=== PATIENT | male | born 1940 | race Caucasian/White ===

== ENCOUNTER 2017-07-23 05:22 | Day surgery (SDC) | payer OTHER ==
[2017-07-15 17:17] VITALS: BMI 33.3
--- NOTE | 2017-07-23 07:30 | HP ---
History & Physical Update - History History: No Change - Physical Physical: No Change - Assessment Assessment: No Change - Plan Plan: No Change
--- NOTE | 2017-07-23 07:32 | OP ---
Operative Note - Note: Operative Date: 07/23/17 Pre-Operative Diagnosis: L ureteral calculus Operation: ESWL L Findings: L ureteral calculus Post-Operative Diagnosis: Same as Pre-op Surgeon: Graham Izaguirre Anesthesiologist/SED SPECIAL EDUCATION TEACHER: Hiwot Gonzalez Anesthesia: Fractional Estimated Blood Loss (mls): 0 Drains & Tubes with Location: L JJ stent Operative Report Dictated: Yes
[2017-07-23] MEDS ORDERED: PROPOFOL 20 ML ONE ×2 (07:39→07:47)
[2017-07-23] MEDS ORDERED: LIDOCAINE HCL/PF 2% SDV 5ML VIAL ONE (07:39)
[2017-07-23] MEDS ORDERED: ceFAZolin SODIUM 1 GM VIAL ONE (07:39)
[2017-07-23] MEDS ORDERED: MIDAZOLAM HCL 2 MG/2 ML SINGLE DOSE VIAL ONE (07:40)
[2017-07-23] MEDS ORDERED: ceFAZolin SODIUM 1 GM VIAL IVPB ONE (07:45)
[2017-07-23] MEDS ORDERED: KETOROLAC TROMETHAMINE 30 MG/1 ML VIAL ONE (07:47)
--- NOTE | 2017-07-23 08:05 | OP ---
DATE OF OPERATION: 07/23/2017 PREOPERATIVE DIAGNOSIS: Left proximal ureteral calculus.. POSTOPERATIVE DIAGNOSIS: Left proximal ureteral calculus. PRODEDURE: Extracorporeal shock wave lithotripsy, left ureteral calculus. SURGEON: Graham Luke MD MANAGED CARE MANAGER: None. ANESTHESIA: IV sedation. ANESTHESIOLOGIST: Hiwot Gonzalez MD SPECIMENS: None. CULTURES: None. DRAINS: Left double-J stent. ESTIMATED BLOOD LOSS: None. COMPLICATIONS: None. PROCEDURE WAS FOLLOWS: Patient was brought into the operating room, was placed on the operating room table in supine position. After administration of intravenous antibiotics, intravenous sedation was administered, and the patient was positioned over the treatment head, and under fluoroscopic guidance, an approximately 5-mm left proximal ureteral calculus was identified under fluoroscopic guidance adjacent to the double-J stent, which was in good position. Now, the stone was targeted and delivered 2500 shocks of maximum kilovoltage with excellent fragmentation. He tolerated the procedure well. He was transferred to the recovery room in stable condition. GRAHAM LUKE M.D. ANDREW/[id number]
[2017-07-23] MEDS ORDERED: oxyCODONE HCL 5 MG TABLET PO PRN (08:17)
[2017-07-23] MEDS ORDERED: IBUPROFEN 800 MG/8 ML IJ IVPB PRN (08:17)
[2017-07-23] MEDS ORDERED: ONDANSETRON 4 MG/2 ML VIAL IVPUSH PRN (08:17)
[2017-07-23] MEDS ORDERED: LACTATED RINGERS SOLUTION 1,000 ML IV SCH (08:30)
[2017-07-23 09:51] VITALS: TEMP 97.9
[2017-07-23 09:52] VITALS: BP 134/64; PULSE 60
== END 2017-07-23 10:20 | disposition home or self-care (01) ==
LOC: JASU-SURG 05:22
PROVIDERS: ATTEND Urology
PROC: 0TF7XZZ Fragmentation in Left Ureter, External Approach (ICD-10-PCS; principal; 2017-07-23 07:30)
DX: N20.1 Calculus of ureter (principal)
CPT/HCPCS: 94760

== ENCOUNTER 2017-08-06 18:52 | Inpatient (IN) | payer OTHER ==
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
[2017-08-06] MEDS ORDERED: SODIUM CHLORIDE 0.9% 1000 ML INFUS.BAG IV STA (19:21)
[2017-08-06 20:13] LABS: BASOPHIL 0.4 % (0-2.0); EOSINOPHIL 0.5 % (0-4.5); MCH 28.8 pg (25.7-33.7); MCHC 32.7 g/dl (32.0-35.9); MEAN CELL VOLUME 88.3 fl (80-96); MEAN PLT VOLUME 8.5 fl (7.5-11.1); NEUTROPHILS 93.1 % (42.8-82.8); PLATELET COUNT 227 K/MM3 (134-434); RDW 16.9 % (11.9-15.9); WHITE BLOOD COUNT 8.1 K/mm3 (4.0-10.0)
[2017-08-06 20:23] LABS: VENOUS BLOOD GAS HCO3 25.2 meq/L (19-25); VENOUS PH 7.47 (7.32-7.42)
[2017-08-06 20:32] LABS: INR 1.07 (0.82-1.09); PROTHROMBIN TIME (PATIENT) 12.1 SEC (9.98-11.88)
[2017-08-06 20:35] LABS: ACTIVATED PTT 28.8 SECONDS (26.9-34.4)
[2017-08-06 20:41] LABS: ALBUMIN 3.4 g/dl (3.4-5.0); ANION GAP 9 (8-16); CO2 24 mmol/L (21-32); CREATININE 1.2 mg/dL (0.7-1.3); GLUCOSE,RANDOM 123 mg/dL (74-106)
[2017-08-06 20:46] LABS: ALK PHOS 146 U/L (45-117); BILIRUBIN,TOTAL 0.8 mg/dL (0.2-1.0); CPK 189 IU/L (39-308); SGPT/ALT 30 U/L (12-78); TOT PROT 7.1 g/dl (6.4-8.2); TROPONIN I < 0.02 ng/ml (0.00-0.05)
[2017-08-06 20:57] LABS: SGOT/AST 29 U/L (15-37)
[2017-08-06] MEDS ORDERED: IBUPROFEN 600 MG TABLET (FP) PO ONE ×2 (21:19→21:25)
[2017-08-06 21:29] LABS: URINE APPEARANCE CLOUDY; URINE BILIRUBIN NEGATIVE (NEGATIVE); URINE BLOOD 3+ (NEGATIVE); URINE COLOR DKYELLOW; URINE GLUCOSE (UA) NEGATIVE (NEGATIVE); URINE KETONE NEGATIVE (NEGATIVE); URINE NITRITE POSITIVE (NEGATIVE); URINE UROBILINOGEN NEGATIVE mg/dL (0.2-1.0)
[2017-08-06 21:30] LABS: URINE PROTEIN 2+ (NEGATIVE)
[2017-08-06 21:33] LABS: URINE BACTERIA RARE /hpf (NONE SEEN); URINE MUCUS RARE; URINE RBC 66 /hpf (0-3); URINE WBC 435 /hpf (3-5); YEAST FEW
--- NOTE | 2017-08-06 22:05 | PN ---
Teaching Attending Note Name of Resident: Mj Sutton ATTENDING PHYSICIAN STATEMENT I saw and evaluated the patient. I reviewed the resident's note and discussed the case with the resident. I agree with the resident's findings and plan as documented. SUBJECTIVE: 77 yo M with hx. of HIV, HTN, ESWL for Nephrolithiasis, osteomyelitis, L. Sided double J-stent placement (07/23), presents with weakness and left flank pain, states he was short of breath due to the severity of the pain, denies any chest pain, pressure or shortness of breath now. States he is not sure of his last CD4 and notes he is complient with his meds. Notes pain in his left flank. States he is always incontinent and is on a catheter. No dysuria, No N/V/D. PC; Dr. Ceballos OBJECTIVE: Physical: VS: Vital Signs Period Temp Pulse Resp BP Sys/Varela Pulse Ox Last 24 Hr 101.1 F 99 16 120/63 95 GEN: Obese Male, NAD, Resting in bed HEENT: NCAT, PERRL,throat without erythema or exudates CARD: RRR S1, S2 RESP: CTAB ABD: BSX4, TTP L. flank EXT: +2 Pitting edema CBCD WBC 8.1 K/mm3 (4.0-10.0) 08/06/17 19:42 RBC 4.13 M/mm3 (4.00-5.60) 08/06/17 19:42 Hgb 11.9 GM/dL (11.7-16.9) 08/06/17 19:42 Hct 36.4 % (35.4-49) 08/06/17 19:42 MCV 88.3 fl (80-96) 08/06/17 19:42 MCHC 32.7 g/dl (32.0-35.9) 08/06/17 19:42 RDW 16.9 % (11.9-15.9) H 08/06/17 19:42 Plt Count 227 K/MM3 (134-434) D 08/06/17 19:42 MPV 8.5 fl (7.5-11.1) D 08/06/17 19:42 CMP Sodium 142 mmol/L (136-145) 08/06/17 19:42 Potassium 4.1 mmol/L (3.5-5.1) 08/06/17 19:42 Chloride 109 mmol/L (98-107) H 08/06/17 19:42 Carbon Dioxide 24 mmol/L (21-32) D 08/06/17 19:42 Anion Gap 9 (8-16) 08/06/17 19:42 BUN 30 mg/dL (7-18) H D 08/06/17 19:42 Creatinine 1.2 mg/dL (0.7-1.3) D 08/06/17 19:42 Creat Clearance w eGFR 59.02 (>60) 08/06/17 19:42 Random Glucose 123 mg/dL (74-106) H 08/06/17 19:42 Calcium 8.0 mg/dL (8.5-10.1) L 08/06/17 19:42 Total Bilirubin 0.8 mg/dL (0.2-1.0) D 08/06/17 19:42 AST 29 U/L (15-37) 08/06/17 19:42 ALT 30 U/L (12-78) D 08/06/17 19:42 Alkaline Phosphatase 146 U/L (45-117) H 08/06/17 19:42 Total Protein 7.1 g/dl (6.4-8.2) 08/06/17 19:42 Albumin 3.4 g/dl (3.4-5.0) 08/06/17 19:42 CARDIAC ENZYMES Creatine Kinase 189 IU/L (39-308) 08/06/17 19:42 Troponin I < 0.02 ng/ml (0.00-0.05) 08/06/17 19:42 Urine Test Results Urine Color Dkyellow 08/06/17 21:12 Urine Appearance Cloudy 08/06/17 21:12 Urine pH 5.0 (5.0-8.0) 08/06/17 21:12 Ur Specific [place] 1.018 (1.001-1.035) 08/06/17 21:12 Urine Protein 2+ (NEGATIVE) H 08/06/17 21:12 Urine Glucose (UA) Negative (NEGATIVE) 08/06/17 21:12 Urine Ketones Negative (NEGATIVE) 08/06/17 21:12 Urine Blood 3+ (NEGATIVE) H 08/06/17 21:12 Urine Nitrite Positive (NEGATIVE) 08/06/17 21:12 Urine Bilirubin Negative (NEGATIVE) 08/06/17 21:12 Urine Bacteria Rare /hpf (NONE SEEN) 08/06/17 21:12 Urine Mucus Rare 08/06/17 21:12 Home Medications Medication Instructions Recorded Emtricitabine/Tenofovir [Truvada -] 1 tab PO DAILY 08/18/13 Amlodipine Besylate [Norvasc -] 10 mg PO DAILY 09/08/14 Metformin HCl 500 mg PO DAILY 07/01/16 Amoxicillin 07/15/17 Gabapentin 400 mg PO BID 07/15/17 Oxycodone HCl/Acetaminophen 1 - 2 tab PO Q4H 07/23/17 [Percocet 5-325 mg Tablet] ASSESSMENT AND PLAN: 77 yo M with hx. of HIV, HTN, ESWL for Nephrolithiasis, L. Sided double J-stent placement (07/23), presents with weakness and left flank pain,being admitted for sepsis due to Pyelonephritis 1.) Sepsis - Pyelonephritis - Ceftriaxone - Oates Cx - Repeat LA - IVF - Urology on consult - CT Abd. Pending 2.) HIV - C/W Truvada - ID consult 3.) JANICE - Ulytes - IVF - Avoid Nephrotoxins 4.) HTN - Currently Controlled - C/W home meds 5.) LE Edema - Duplex LE 6.) Osteo Hip - On Ampicillin as outpt. - Check ESR/CRP - Continue 7.) DM - FS - RAISS .) Dvt Ppx - Mod risk - SCDS Due to Hematouria Place in Med-Sx
--- NOTE | 2017-08-06 22:23 | PDOC ---
Attending Attestation - Resident Resident Name: Kelvin Fischer - ED Attending Attestation I have performed the following: I have examined & evaluated the patient, The case was reviewed & discussed with the resident, I agree w/resident's findings & plan, Exceptions are as noted - HPI HPI: 08/06/17 22:21 77 yo male p/w fever,L flank pain .Recent;y had nephrolithiasis with lithotripsy and stent placement 08/06/17 22:24 - Physicial Exam PE: 08/06/17 22:24 77 yo male p/w L flank pain and fever HEAD wnl neck supple lungs cta b/l cvs tachycardia lung cta b/l abd no rebound no guarding Left flank pain ext no edema neuro axox3 - Medical Decision Making 08/06/17 22:28 pt admitted for IV antibiotics/pyelonephritis/HIV
[2017-08-06 22:38] LABS: URINE LEUK ESTERASE 2+ (NEGATIVE)
[2017-08-06] MEDS ORDERED: CEFTRIAXONE 1 GM/50 ML BAG ONE (22:48)
[2017-08-06] MEDS ORDERED: GABAPENTIN 400 MG CAPSULE (FP) PO ONE (23:11)
[2017-08-06] MEDS ORDERED: CEFTRIAXONE 1 GM in DEXTROSE 5%-WATER - 50 ML IVPB SCH (23:15)
[2017-08-06] MEDS ORDERED: CEFTRIAXONE 1 G/50 ML PREMIX 50 ML IVPB SCH (23:30)
[2017-08-07 00:03] VITALS: BMI 34.2
--- NOTE | 2017-08-07 00:03 | HP ---
CHIEF COMPLAINT: Left sided flank pain and SOB HISTORY OF PRESENT ILLNESS: Patient is a 77 yo M with a PMHx of HIV, HTN, ESWL for Nephrolithiasis, L. Sided double J-stent placement (07/23), and urinary incontinence, presented to the ED because of constant, Left sided flank pain and chills that started today at 4pm. Movement aggravates the pain. He later developed a fever with sweats. He called his urologist (Dr. Izaguirre) and decided to go to the hospital. He says the symptoms are similar to when he had his kidney stones. He currently denies chest pain, cough, dizziness, lightheadedness , dysuria, hematuria nausea,and vomiting. Patient does not recall his last CD4 count. ER course was notable for: (1) Temp 101.9, 100HR (2) 1gm Ceftriaxone Recent Travel: n/a PAST MEDICAL HISTORY: HIV, HTN, ESWL for Nephrolithiasis, L. Sided double J- stent placement (07/23), and urinary incontinence PAST SURGICAL HISTORY: hip replacement x3 Social History: Smoking: former smoker quit 1982 Alcohol: n/a Drugs: denies Family History: Allergies Sulfa (Sulfonamide Antibiotics) Allergy (Mild, Verified 08/06/17 18:59) Rash HOME MEDICATIONS: Home Medications Medication Instructions Recorded Emtricitabine/Tenofovir [Truvada -] 1 tab PO DAILY 08/18/13 Amlodipine Besylate [Norvasc -] 10 mg PO DAILY 09/08/14 Metformin HCl 500 mg PO DAILY 07/01/16 Amoxicillin 07/15/17 Gabapentin 400 mg PO BID 07/15/17 Oxycodone HCl/Acetaminophen 1 - 2 tab PO Q4H 07/23/17 [Percocet 5-325 mg Tablet] REVIEW OF SYSTEMS CONSTITUTIONAL: fever, chills, diaphoresis Absent: generalized weakness, malaise, loss of appetite, weight change HEENT: Absent: rhinorrhea, nasal congestion, throat pain, throat swelling, difficulty swallowing, mouth swelling,visual changes CARDIOVASCULAR: peripheral edema Absent: chest pain, syncope, palpitations, irregular heart rate, lightheadedness RESPIRATORY: sob Absent: cough, dyspnea with exertion, orthopnea, wheezing, stridor, hemoptysis GASTROINTESTINAL: constipation Absent: abdominal pain, abdominal distension, nausea, vomiting, diarrhea, melena , hematochezia GENITOURINARY: incontinence Absent: dysuria, frequency, urgency, hesitancy, hematuria, flank pain, genital pain MUSCULOSKELETAL: back pain Absent: myalgia, arthralgia, joint swelling, neck pain SKIN: Absent: rash, itching, pallor HEMATOLOGIC/IMMUNOLOGIC: Absent: easy bleeding, easy bruising, lymphadenopathy, frequent infections ENDOCRINE: Absent: unexplained weight gain, unexplained weight loss, heat intolerance, cold intolerance NEUROLOGIC: Absent: headache, focal weakness or paresthesias, dizziness, unsteady gait, seizure, mental status changes, bladder or bowel incontinence PSYCHIATRIC: Absent: anxiety, depression, suicidal or homicidal ideation, hallucinations. PHYSICAL EXAMINATION Vital Signs - 24 hr 08/06/17 19:00 Temperature 101.1 F H Pulse Rate 99 H Respiratory 16 Rate Blood Pressure 120/63 O2 Sat by Pulse 95 Oximetry (%) GENERAL: Awake, alert, and fully oriented, in no acute distress. HEAD: Normal with no signs of trauma. EYES: sclera anicteric, conjunctiva clear. EARS, NOSE, THROAT: oropharynx clear without exudates. Moist mucous membranes. NECK: supple without lymphadenopathy, LUNGS: Breath sounds equal, clear to auscultation bilaterally. No wheezes, and no crackles. HEART: tachy, regular rhythm, normal S1 and S2 without murmur, rub or gallop. ABDOMEN: Soft, nontender, not distended, normoactive bowel sounds, no guarding, no rebound, no masses. left flank tenderness to palpation, +Left CVA tenderness UPPER EXTREMITIES: 2+ pulses, warm, well-perfused. No cyanosis. No clubbing. No peripheral edema. LOWER EXTREMITIES: 2+ pulses, 2+ pitting edema NEUROLOGICAL: Cranial nerves II-XII intact. Normal speech. PSYCHIATRIC: Cooperative. Good eye contact. Appropriate mood and affect. Laboratory Results - last 24 hr 08/06/17 08/06/17 08/06/17 19:41 19:42 19:42 WBC 8.1 RBC 4.13 Hgb 11.9 Hct 36.4 MCV 88.3 MCH 28.8 MCHC 32.7 RDW 16.9 H Plt Count 227 D MPV 8.5 D Neutrophils % 93.1 H Lymphocytes % 2.6 L D Monocytes % 3.4 L Eosinophils % 0.5 Basophils % 0.4 D PT with INR 12.10 H INR 1.07 PTT (Actin FS) 28.8 VBG pH POC VBG pCO2 POC VBG pO2 Mixed VBG HCO3 Sodium Potassium Chloride Carbon Dioxide Anion Gap BUN Creatinine Creat Clearance w eGFR Random Glucose Lactic Acid 1.8 Calcium Total Bilirubin AST ALT Alkaline Phosphatase Creatine Kinase Creatine Kinase Index CK-MB (CK-2) Troponin I Total Protein Albumin Urine Color Urine Appearance Urine pH Ur Specific [place] Urine Protein Urine Glucose (UA) Urine Ketones Urine Blood Urine Nitrite Urine Bilirubin Urine Urobilinogen Ur Leukocyte Esterase Urine WBC (Auto) Urine RBC (Auto) Urine Bacteria Urine Mucus Urine Yeast Blood Type Antibody Screen 08/06/17 08/06/17 08/06/17 19:42 19:42 19:42 WBC RBC Hgb Hct MCV MCH MCHC RDW Plt Count MPV Neutrophils % Lymphocytes % Monocytes % Eosinophils % Basophils % PT with INR INR PTT (Actin FS) VBG pH 7.47 H POC VBG pCO2 44.6 POC VBG pO2 43.1 Mixed VBG HCO3 25.2 H Sodium 142 Potassium 4.1 Chloride 109 H Carbon Dioxide 24 D Anion Gap 9 BUN 30 H D Creatinine 1.2 D Creat Clearance w eGFR 59.02 Random Glucose 123 H Lactic Acid Calcium 8.0 L Total Bilirubin 0.8 D AST 29 ALT 30 D Alkaline Phosphatase 146 H Creatine Kinase 189 Creatine Kinase Index 1.4 CK-MB (CK-2) 2.715 Troponin I < 0.02 Total Protein 7.1 Albumin 3.4 Urine Color Urine Appearance Urine pH Ur Specific [place] Urine Protein Urine Glucose (UA) Urine Ketones Urine Blood Urine Nitrite Urine Bilirubin Urine Urobilinogen Ur Leukocyte Esterase Urine WBC (Auto) Urine RBC (Auto) Urine Bacteria Urine Mucus Urine Yeast Blood Type A POSITIVE Antibody Screen Negative 08/06/17 21:12 WBC RBC Hgb Hct MCV MCH MCHC RDW Plt Count MPV Neutrophils % Lymphocytes % Monocytes % Eosinophils % Basophils % PT with INR INR PTT (Actin FS) VBG pH POC VBG pCO2 POC VBG pO2 Mixed VBG HCO3 Sodium Potassium Chloride Carbon Dioxide Anion Gap BUN Creatinine Creat Clearance w eGFR Random Glucose Lactic Acid Calcium Total Bilirubin AST ALT Alkaline Phosphatase Creatine Kinase Creatine Kinase Index CK-MB (CK-2) Troponin I Total Protein Albumin Urine Color Dkyellow Urine Appearance Cloudy Urine pH 5.0 Ur Specific [place] 1.018 Urine Protein 2+ H Urine Glucose (UA) Negative Urine Ketones Negative Urine Blood 3+ H Urine Nitrite Positive Urine Bilirubin Negative Urine Urobilinogen Negative Ur Leukocyte Esterase 2+ H Urine WBC (Auto) 435 Urine RBC (Auto) 66 Urine Bacteria Rare Urine Mucus Rare Urine Yeast Few Blood Type Antibody Screen CXR: Mild bibasilar atelectasis with no evidence of infiltrates. ASSESSMENT/PLAN: 77 yo M with a PMHx of HIV, HTN, ESWL for Nephrolithiasis, L. Sided double J- stent placement (07/23), and urinary incontinence, presents with weakness and left flank pain,being admitted for sepsis due to Pyelonephritis. #Sepsis secondary to Pyelonephritis -UA: Nitrite + , 2+ LE, 3 + blood, 66 RBC, 435 WBC -Pending Ucx, Bcx -LA: 1.8, FU repeat -IV fluids NS@ 75 cc/hour -Urology consulted: Dr. Izaguirre -FU CT abdomen -IV Abx: Ceftriaxone 1gm (Day 1) #JANICE -creatinine 1.2 -IV fluids -urine lytes -avoid Nsaids -avoid nephrotoxins -Will monitor #HIV -cont. home med: Pepito -ID consulted #Pain Control -One time dose of percocet 5mg. -Patient says he is on 7.5mg of Percocet a day at home. 3.75mg in morning, night. -Med rec #B/L LE Edema -FU duplex -possibly due to calcium channel zander use. #Hx of Infection of Hip Prosthesis -Patient states he takes 500mg BID of Amoxicillin as outpatient. -Med Rec -Check ESR/CRP: could be elevated from HIV status #DM -BGM -ISS #FEN -NS 75 cc/hour -WNL -Regular Diet #DVT PPx -SCD's -Previous history of hematuria 1 month ago s/p stent placement. Dispo: Med-surge Visit type - Emergency Visit Emergency Visit: Yes ED Registration Date: 08/06/17 Care time: The patient presented to the Emergency Department on the above date and was hospitalized for further evaluation of their emergent condition. - New Patient This patient is new to me today: Yes Date on this admission: 08/07/17 - Critical Care Critical Care patient: No
[2017-08-07] MEDS: SODIUM CHLORIDE 1,000 ML IV SCH ×2 (00:28→17:57)
[2017-08-07] MEDS: RALTEGRAVIR POTASSIUM 400 MG TAB PO SCH ×3 (00:29→21:01)
[2017-08-07] MEDS: EMTRICITABINE 200MG/TENOFOVIR 300MG PO SCH ×2 (00:30→09:51)
[2017-08-07] MEDS: INSULIN SLIDING SCALE (NOVOLOG) 1 VIAL SQ SCH ×5 (00:32→21:02)
[2017-08-07 08:20] LABS: BASOPHIL 0.2 % (0-2.0); EOSINOPHIL 3.6 % (0-4.5); MCH 28.5 pg (25.7-33.7); MCHC 32.1 g/dl (32.0-35.9); MEAN CELL VOLUME 88.6 fl (80-96); MEAN PLT VOLUME 8.3 fl (7.5-11.1); NEUTROPHILS 79.4 % (42.8-82.8); PLATELET COUNT 177 K/MM3 (134-434); RDW 17.1 % (11.9-15.9); WHITE BLOOD COUNT 6.4 K/mm3 (4.0-10.0)
[2017-08-07 08:38] LABS: INR 1.15 (0.82-1.09)
[2017-08-07 08:41] LABS: ANION GAP 8 (8-16); CALCIUM 7.5 mg/dL (8.5-10.1); CO2 24 mmol/L (21-32); GLUCOSE,RANDOM 102 mg/dL (74-106); MAGNESIUM 2.1 mg/dL (1.8-2.4)
[2017-08-07 08:45] LABS: ALK PHOS 124 U/L (45-117); PHOSPHOROUS 2.7 mg/dL (2.5-4.9); SGOT/AST 20 U/L (15-37); SGPT/ALT 24 U/L (12-78); TOT PROT 6.3 g/dl (6.4-8.2)
--- NOTE | 2017-08-07 09:32 | PN ---
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 fever-most likely source- +pyuria with stent, mild hydronephrosis, s/p eswl continue rocephin fevers resolved urology consult pending doubt pneumonia hiv- stable, continue truvada/isentress history of left hip infection-continue chronic suppression with amox sulfa allergy Problem List - Problems (1) Fever Code(s): R50.9 - FEVER, UNSPECIFIED (2) UTI (urinary tract infection) Code(s): N39.0 - URINARY TRACT INFECTION, SITE NOT SPECIFIED (3) HIV (human immunodeficiency virus infection) Code(s): B20 - HUMAN IMMUNODEFICIENCY VIRUS [HIV] DISEASE (4) Allergy to sulfa drugs Code(s): Z88.2 - ALLERGY STATUS TO SULFONAMIDES STATUS
[2017-08-07] MEDS ORDERED: PT OWN MED DRAWER 7, Y5N ONE ×2 (09:49→20:58)
[2017-08-07] MEDS: oxyCODONE HCL 5 MG TABLET PO PRN ×4 (09:50→23:36)
[2017-08-07] MEDS: ACETAMINOPHEN 325 MG TABLET (FP) PO PRN ×4 (09:50→23:37)
[2017-08-07] MEDS: CEFTRIAXONE 1 G/50 ML PREMIX 50 ML IVPB SCH (09:51)
--- NOTE | 2017-08-07 10:22 | EKG ---
Test Reason : Blood Pressure : / mmHG Vent. Rate : 096 BPM Atrial Rate : 096 BPM P-R Int : 142 ms QRS Dur : 084 ms QT Int : 338 ms P-R-T Axes : 044 046 049 degrees QTc Int : 427 ms NORMAL SINUS RHYTHM POSSIBLE LEFT ATRIAL ENLARGEMENT LOW VOLTAGE QRS BORDERLINE ECG WHEN COMPARED WITH ECG OF 15-JUL-2017 17:20, NO SIGNIFICANT CHANGE WAS FOUND Confirmed by DREAD PACHECO MD ([id number]) on 08/07/2017 10:22:03 AM Referred By: Confirmed By:DREAD PACHECO MD
[2017-08-07] MEDS: AMOXICILLIN 500 MG CAPSULE (FP) PO SCH ×3 (11:01→21:01)
--- NOTE | 2017-08-07 12:22 | PN ---
Teaching Attending Note Name of Resident: Luis Daniel Duarte ATTENDING PHYSICIAN STATEMENT Time of evaluation: 10:10 AM I saw and evaluated the patient. I reviewed the resident's note and discussed the case with the resident. I agree with the resident's findings and plan as documented. SUBJECTIVE: patient seen and examined. Reports left flank symptoms since the stent insertion , no change currently. NO further fevers or chills noted. Has urinary incontinence but no dysuria. No shortness of breath noted. Reports chronic constipation. OBJECTIVE: Vital Signs Period Temp Pulse Resp BP Sys/Varela Pulse Ox Last 24 Hr 97.7 F-101.1 F 69-99 16-20 118-144/62-86 94-95 Intake & Output 08/04/17 08/05/17 08/06/17 08/07/17 23:59 23:59 23:59 23:59 Intake Total 525 Balance 525 Weight 218 lb 8 oz 218 lb 9 oz General: sitting in bed in no acute distress CVS:S1S2 regular Chest: CTAB, no rales or wheezing abdomen: soft, ND, positive Left CVA tenderness, no voluntary or involuntary guarding or rigidity extremities: no edema Home Medication List Medication Instructions Recorded Confirmed Type Emtricitabine/Tenofovir [Truvada -] 1 tab PO DAILY 08/18/13 08/06/17 History Amlodipine Besylate [Norvasc -] 10 mg PO DAILY 09/08/14 08/06/17 History Metformin HCl 500 mg PO DAILY 07/01/16 08/06/17 History Amoxicillin 500 mg PO BID 07/15/17 08/06/17 History Gabapentin 400 mg PO BID 07/15/17 08/06/17 History Oxycodone HCl/Acetaminophen 1 - 2 tab PO Q4H 07/23/17 08/06/17 History [Percocet 5-325 mg Tablet] Raltegravir [Isentress -] 400 mg PO BID 08/06/17 08/06/17 History Active Medications Generic Name Dose Route Start Last Admin Trade Name Freq PRN Reason Stop Dose Admin Acetaminophen 325 mg 08/07/17 09:46 08/07/17 09:50 Tylenol - PO 08/10/17 09:45 325 mg Q4H PRN Administration PAIN Amoxicillin 500 mg 08/07/17 09:30 08/07/17 11:01 Amoxicillin - PO 500 mg BID BRY Administration Emtricitabine/Tenofovir 1 tab 12/05/17 23:15 08/07/17 09:51 Truvada PO 1 tab DAILY BRY Administration Sodium Chloride 1,000 mls @ 75 mls/hr 08/06/17 23:15 08/07/17 00:28 Normal Saline - IV 75 mls/hr ASDIR BRY Administration CEFTRIAXONE 1 G/50 ML PREMIX 50 mls @ 100 mls/hr 08/07/17 10:00 08/07/17 09: 51 Ceftriaxone 1 Gm-D5w Bag IVPB 100 mls/hr DAILY BRY Administration Insulin Aspart 1 vial 08/06/17 23:15 08/07/17 11:07 Novolog Vial Sliding Scale - SQ Not Given ACHS BRY Protocol Oxycodone HCl 5 mg 08/07/17 09:46 08/07/17 09:50 Roxicodone - PO 5 mg Q4H PRN Administration PAIN Raltegravir 400 mg 08/06/17 23:30 08/07/17 09:51 Isentress - PO 400 mg BID BRY Administration ASSESSMENT AND PLAN: 77 yom with HIV on HAART, (Last CD4 ?195 in 06/2017), HTN, nephrolithiasis, recent ESWL with left Ureteral JJ stent placement 07/23 admitted with complicated UTI/left sided pyelonephritis. -Complicated UTI with LEft pyelonephritis -Recent ESWL with left ureteral JJ stent placement 07/23 -HTN -HIV on HAART (last CD4 ?195 in 06/2017) -Constipation Plan: Ceftriaxone day 2, follow up blood/urine cultures. ID input appreciated. Urology consult with Dr. Izaguirre. Continue home metorolol, HAART. Pain control with home oxycodone prn, bowel regimen DVTPPX add lovenox Dispo d/c in 24-48 hours spending improvement in symptoms, culture results and urology input.' Plan discussed with patient in detail, all questions answered.
--- NOTE | 2017-08-07 13:33 | PN ---
Physical Exam: SUBJECTIVE: Patient seen and examined at bedside. Patient states that he does not currently have a fever, burning on urination. He states he has some mild flank pain but states that has been going on for a long time. OBJECTIVE: Vital Signs Period Temp Pulse Resp BP Sys/Varela Pulse Ox Last 24 Hr 97.7 F-101.1 F 69-99 16-20 118-144/62-86 94-96 GENERAL: The patient is awake, alert, and fully oriented, in no acute distress. HEAD: Normal with no signs of trauma. EYES: PERRL, extraocular movements intact, sclera anicteric, conjunctiva clear. No ptosis. ENT: Ears normal, nares patent, oropharynx clear without exudates, moist mucous membranes. NECK: Trachea midline, full range of motion, supple. LUNGS: Breath sounds equal, clear to auscultation bilaterally, no wheezes, no crackles, no accessory muscle use. HEART: Regular rate and rhythm, S1, S2 without murmur, rub or gallop. ABDOMEN: Obese, Soft, nontender, nondistended, normoactive bowel sounds, no guarding, no rebound, no hepatosplenomegaly, no masses. : external catheter present draining 400cc yellow clear urine Laboratory Results - last 24 hr 08/06/17 08/06/17 08/06/17 19:41 19:42 19:42 WBC 8.1 RBC 4.13 Hgb 11.9 Hct 36.4 MCV 88.3 MCH 28.8 MCHC 32.7 RDW 16.9 H Plt Count 227 D MPV 8.5 D Neutrophils % 93.1 H Lymphocytes % 2.6 L D Monocytes % 3.4 L Eosinophils % 0.5 Basophils % 0.4 D ESR PT with INR 12.10 H INR 1.07 PTT (Actin FS) 28.8 VBG pH POC VBG pCO2 POC VBG pO2 Mixed VBG HCO3 Sodium Potassium Chloride Carbon Dioxide Anion Gap BUN Creatinine Creat Clearance w eGFR POC Glucometer Random Glucose Lactic Acid 1.8 Calcium Phosphorus Magnesium Total Bilirubin AST ALT Alkaline Phosphatase Creatine Kinase Creatine Kinase Index CK-MB (CK-2) Troponin I C-Reactive Protein Total Protein Albumin Urine Color Urine Appearance Urine pH Ur Specific [place] Urine Protein Urine Glucose (UA) Urine Ketones Urine Blood Urine Nitrite Urine Bilirubin Urine Urobilinogen Ur Leukocyte Esterase Urine WBC (Auto) Urine RBC (Auto) Urine Bacteria Urine Mucus Urine Yeast Ur Random Sodium Ur Random Potassium Ur Random Chloride Blood Type Antibody Screen 08/06/17 08/06/17 08/06/17 19:42 19:42 19:42 WBC RBC Hgb Hct MCV MCH MCHC RDW Plt Count MPV Neutrophils % Lymphocytes % Monocytes % Eosinophils % Basophils % ESR PT with INR INR PTT (Actin FS) VBG pH 7.47 H POC VBG pCO2 44.6 POC VBG pO2 43.1 Mixed VBG HCO3 25.2 H Sodium 142 Potassium 4.1 Chloride 109 H Carbon Dioxide 24 D Anion Gap 9 BUN 30 H D Creatinine 1.2 D Creat Clearance w eGFR 59.02 POC Glucometer Random Glucose 123 H Lactic Acid Calcium 8.0 L Phosphorus Magnesium Total Bilirubin 0.8 D AST 29 ALT 30 D Alkaline Phosphatase 146 H Creatine Kinase 189 Creatine Kinase Index 1.4 CK-MB (CK-2) 2.715 Troponin I < 0.02 C-Reactive Protein Total Protein 7.1 Albumin 3.4 Urine Color Urine Appearance Urine pH Ur Specific [place] Urine Protein Urine Glucose (UA) Urine Ketones Urine Blood Urine Nitrite Urine Bilirubin Urine Urobilinogen Ur Leukocyte Esterase Urine WBC (Auto) Urine RBC (Auto) Urine Bacteria Urine Mucus Urine Yeast Ur Random Sodium Ur Random Potassium Ur Random Chloride Blood Type A POSITIVE Antibody Screen Negative 08/06/17 08/07/17 08/07/17 21:12 00:32 06:00 WBC RBC Hgb Hct MCV MCH MCHC RDW Plt Count MPV Neutrophils % Lymphocytes % Monocytes % Eosinophils % Basophils % ESR PT with INR INR PTT (Actin FS) VBG pH POC VBG pCO2 POC VBG pO2 Mixed VBG HCO3 Sodium Potassium Chloride Carbon Dioxide Anion Gap BUN Creatinine Creat Clearance w eGFR POC Glucometer 109 Random Glucose Lactic Acid Calcium Phosphorus Magnesium Total Bilirubin AST ALT Alkaline Phosphatase Creatine Kinase Creatine Kinase Index CK-MB (CK-2) Troponin I C-Reactive Protein Total Protein Albumin Urine Color Dkyellow Urine Appearance Cloudy Urine pH 5.0 Ur Specific [place] 1.018 Urine Protein 2+ H Urine Glucose (UA) Negative Urine Ketones Negative Urine Blood 3+ H Urine Nitrite Positive Urine Bilirubin Negative Urine Urobilinogen Negative Ur Leukocyte Esterase 2+ H Urine WBC (Auto) 435 Urine RBC (Auto) 66 Urine Bacteria Rare Urine Mucus Rare Urine Yeast Few Ur Random Sodium 106 Ur Random Potassium 26.4 Ur Random Chloride 88 Blood Type Antibody Screen 08/07/17 08/07/17 08/07/17 07:45 07:45 07:45 WBC 6.4 RBC 3.94 L Hgb 11.2 L Hct 34.9 L MCV 88.6 MCH 28.5 MCHC 32.1 RDW 17.1 H Plt Count 177 D MPV 8.3 Neutrophils % 79.4 Lymphocytes % 8.8 D Monocytes % 8.0 D Eosinophils % 3.6 D Basophils % 0.2 ESR PT with INR 13.00 H INR 1.15 H PTT (Actin FS) VBG pH POC VBG pCO2 POC VBG pO2 Mixed VBG HCO3 Sodium 142 Potassium 3.8 Chloride 110 H Carbon Dioxide 24 Anion Gap 8 BUN 27 H Creatinine 1.0 Creat Clearance w eGFR > 60 POC Glucometer Random Glucose 102 Lactic Acid Calcium 7.5 L Phosphorus 2.7 Magnesium 2.1 Total Bilirubin 1.0 D AST 20 D ALT 24 Alkaline Phosphatase 124 H Creatine Kinase Creatine Kinase Index CK-MB (CK-2) Troponin I C-Reactive Protein Total Protein 6.3 L Albumin 3.0 L Urine Color Urine Appearance Urine pH Ur Specific [place] Urine Protein Urine Glucose (UA) Urine Ketones Urine Blood Urine Nitrite Urine Bilirubin Urine Urobilinogen Ur Leukocyte Esterase Urine WBC (Auto) Urine RBC (Auto) Urine Bacteria Urine Mucus Urine Yeast Ur Random Sodium Ur Random Potassium Ur Random Chloride Blood Type Antibody Screen 08/07/17 08/07/17 07:45 07:45 WBC RBC Hgb Hct MCV MCH MCHC RDW Plt Count MPV Neutrophils % Lymphocytes % Monocytes % Eosinophils % Basophils % ESR 45 H PT with INR INR PTT (Actin FS) VBG pH POC VBG pCO2 POC VBG pO2 Mixed VBG HCO3 Sodium Potassium Chloride Carbon Dioxide Anion Gap BUN Creatinine Creat Clearance w eGFR POC Glucometer Random Glucose Lactic Acid Calcium Phosphorus Magnesium Total Bilirubin AST ALT Alkaline Phosphatase Creatine Kinase Creatine Kinase Index CK-MB (CK-2) Troponin I C-Reactive Protein 4.2 H Total Protein Albumin Urine Color Urine Appearance Urine pH Ur Specific [place] Urine Protein Urine Glucose (UA) Urine Ketones Urine Blood Urine Nitrite Urine Bilirubin Urine Urobilinogen Ur Leukocyte Esterase Urine WBC (Auto) Urine RBC (Auto) Urine Bacteria Urine Mucus Urine Yeast Ur Random Sodium Ur Random Potassium Ur Random Chloride Blood Type Antibody Screen Active Medications Generic Name Dose Route Start Last Admin Trade Name Freq PRN Reason Stop Dose Admin Acetaminophen 325 mg 08/07/17 09:46 08/07/17 09:50 Tylenol - PO 08/10/17 09:45 325 mg Q4H PRN Administration PAIN Amoxicillin 500 mg 08/07/17 09:30 08/07/17 11:01 Amoxicillin - PO 500 mg BID BRY Administration Emtricitabine/Tenofovir 1 tab 08/06/17 23:15 08/07/17 09:51 Truvada PO 1 tab DAILY BRY Administration Enoxaparin Sodium 40 mg 08/08/17 10:00 Lovenox - SQ DAILY BRY Sodium Chloride 1,000 mls @ 75 mls/hr 08/06/17 23:15 08/07/17 00:28 Normal Saline - IV 75 mls/hr ASDIR BRY Administration CEFTRIAXONE 1 G/50 ML PREMIX 50 mls @ 100 mls/hr 08/07/17 10:00 08/07/17 09: 51 Ceftriaxone 1 Gm-D5w Bag IVPB 100 mls/hr DAILY BRY Administration Insulin Aspart 1 vial 08/06/17 23:15 08/07/17 11:07 Novolog Vial Sliding Scale - SQ Not Given ACHS [facility] Protocol Oxycodone HCl 5 mg 08/07/17 09:46 08/07/17 09:50 Roxicodone - PO 5 mg Q4H PRN Administration PAIN Raltegravir 400 mg 08/06/17 23:30 08/07/17 09:51 Isentress - PO 400 mg BID BRY Administration ASSESSMENT/PLAN: 77 yo M with a PMHx of HIV, HTN, ESWL for Nephrolithiasis, L. Sided double J- stent placement (07/23), and urinary incontinence, presents with weakness and left flank pain, being admitted for sepsis due to Pyelonephritis. #Sepsis secondary to Pyelonephritis: improving -WBC normal, afebrile, less symptomatic -continue ceftriaxone day 2 -follow up with urine and blood cultures -lactic acid normalized -continue IV fluids NS@ 75 cc/hour -ID consulted -Dr Izaguirre (urology) consulted -CT abdomen shows perinephric fat stranding #Acute kidney injury: resolved -IV fluids -avoid nephrotoxic agents #HIV infection: -Continue truvada -ID consult appreciated #Pain Control: -continue percorcet form home #B/L LE Edema: -Duplex negative for DVT #Hx of Infection of Hip Prosthesis: -continue home amoxicillin -ESR/CRP #Diabetes Mellitus -BGM -ISS #FEN -NS 75 cc/hour -Replete electrolytes as necessary -Diabetic diet #DVT Prophylaxis -SCD's Disposition: -Continue to monitor on med-surg Visit type - Emergency Visit Emergency Visit: No - New Patient This patient is new to me today: Yes Date on this admission: 08/07/17 - Critical Care Critical Care patient: No
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
[2017-08-07] MEDS: DOCUSATE SODIUM 100 MG CAPSULE (FP) PO SCH (14:54)
--- NOTE | 2017-08-07 15:16 | CON.GU ---
Consult Consult Specialty:: Referred by:: Mimi Reason for Consultation:: urosepsis - History of Present Illness Chief Complaint: fever chills History of Present Illness: 77 yo m w hx HIV, HTN, DM, L ureteral calculus s/p L JJ stent insertion then ESWL L who pres to ER c/o fever chills and L flank pain. cons req. - History Source History Provided By: Patient, Medical Record Limitations to Obtaining History: No Limitations - Past Medical History Renal/: Yes: BPH, Renal Calculi, UTI Infectious Disease: Yes: HIV - Past Surgical History Past Surgical History: Yes: TURP - Alcohol/Substance Use Hx Alcohol Use: No - Smoking History Smoking history: Former smoker Have you smoked in the past 12 months: No If you are a former smoker, when did you quit?: 1982 Home Medications - Allergies Allergies/Adverse Reactions: Allergies Allergy/AdvReac Type Severity Reaction Status Date / Time Sulfa (Sulfonamide Allergy Mild Rash Verified 08/06/17 18:59 Antibiotics) - Home Medications Home Medications: Ambulatory Orders Emtricitabine/Tenofovir [Truvada -] 1 tab PO DAILY 08/18/13 Amlodipine Besylate [Norvasc -] 10 mg PO DAILY 09/08/14 Metformin HCl 500 mg PO DAILY 07/01/16 Amoxicillin 500 mg PO BID 07/15/17 Gabapentin 400 mg PO BID 07/15/17 Oxycodone HCl/Acetaminophen [Percocet 5-325 mg Tablet] 1 - 2 tab PO Q4H Raltegravir [Isentress -] 400 mg PO BID 08/06/17 Physical Exam- Vital Signs: Vital Signs Temperature 97.9 F 08/07/17 14:19 Pulse Rate 74 08/07/17 14:19 Respiratory Rate 18 08/07/17 14:19 Blood Pressure 127/67 08/07/17 14:19 O2 Sat by Pulse Oximetry (%) 96 08/07/17 09:00 Renal/: Yes: WNL Kidneys: Yes: WNL Pelvis: Yes: WNL Testicles: Yes: WNL Scrotum: Yes: WNL Penis: Yes: WNL (condom cath) Labs: CBC, BMP 08/07/17 07:45 08/07/17 07:45 Imaging - Results Cat Scan: Report Reviewed Assessment/Plan Imp: Urosepsis/UTI, resolved pyrexia, indwelling L JJ stent Rec: cont IV abxs, await ur c+s then change to PO. He will need cystoscopy and L JJ stent removal after UTI resolved.
[2017-08-07] MEDS ORDERED: HEPARIN NA (PORCINE) 5,000 UNITS/ML 1ML VIAL SQ SCH (23:00)
[2017-08-08] MEDS: oxyCODONE HCL 5 MG TABLET PO PRN ×5 (03:31→21:19)
[2017-08-08] MEDS: ACETAMINOPHEN 325 MG TABLET (FP) PO PRN ×4 (03:32→21:20)
[2017-08-08] MEDS: SODIUM CHLORIDE 1,000 ML IV SCH (06:12)
[2017-08-08] MEDS: INSULIN SLIDING SCALE (NOVOLOG) 1 VIAL SQ SCH ×4 (06:15→21:50)
--- NOTE | 2017-08-08 08:00 | PN ---
Teaching Attending Note Name of Resident: Luis Daniel Duarte ATTENDING PHYSICIAN STATEMENT I saw and evaluated the patient. I reviewed the resident's note and discussed the case with the resident. I agree with the resident's findings and plan as documented. SUBJECTIVE: Patient seen and examined. Left flank symptoms improved. No new complaints. OBJECTIVE: Vital Signs Period Temp Pulse Resp BP Sys/Varela Pulse Ox Last 24 Hr 97.9 F-98.9 F 73-82 18-20 127-147/61-73 95-96 Intake & Output 08/05/17 08/06/17 08/07/17 08/08/17 23:59 23:59 23:59 23:59 Intake Total 1575 100 Output Total 650 Balance 925 100 Weight 218 lb 8 oz 218 lb 9 oz 219 lb 6 oz General: lying in bed in no acute distress Abdomen: soft, NT, ND, positive bowel sounds, mild Left CVA tenderness Home Medication List Medication Instructions Recorded Confirmed Type Emtricitabine/Tenofovir [Truvada -] 1 tab PO DAILY 08/18/13 08/06/17 History Amlodipine Besylate [Norvasc -] 10 mg PO DAILY 09/08/14 08/06/17 History Metformin HCl 500 mg PO DAILY 07/01/16 08/06/17 History Amoxicillin 500 mg PO BID 07/15/17 08/06/17 History Gabapentin 400 mg PO BID 07/15/17 08/06/17 History Oxycodone HCl/Acetaminophen 1 - 2 tab PO Q4H 07/23/17 08/06/17 History [Percocet 5-325 mg Tablet] Raltegravir [Isentress -] 400 mg PO BID 08/06/17 08/06/17 History Active Medications Generic Name Dose Route Start Last Admin Trade Name Freq PRN Reason Stop Dose Admin Acetaminophen 325 mg 08/07/17 09:46 08/08/17 07:55 Tylenol - PO 08/10/17 09:45 325 mg Q4H PRN Administration PAIN Amoxicillin 500 mg 08/07/17 09:30 08/07/17 21:01 Amoxicillin - PO 500 mg BID BRY Administration Docusate Sodium 100 mg 08/07/17 14:15 08/07/17 14:54 Colace - PO Not Given DAILY BRY Emtricitabine/Tenofovir 1 tab 08/06/17 23:15 08/07/17 09:51 Truvada PO 1 tab DAILY BRY Administration Enoxaparin Sodium 40 mg 08/08/17 10:00 Lovenox - SQ DAILY BRY Sodium Chloride 1,000 mls @ 75 mls/hr 08/06/17 23:15 08/08/17 06:12 Normal Saline - IV 75 mls/hr ASDIR BRY Administration CEFTRIAXONE 1 G/50 ML PREMIX 50 mls @ 100 mls/hr 08/07/17 10:00 08/07/17 09: 51 Ceftriaxone 1 Gm-D5w Bag IVPB 100 mls/hr DAILY BRY Administration Insulin Aspart 1 vial 08/06/17 23:15 08/08/17 06:15 Novolog Vial Sliding Scale - SQ Not Given ACHS [facility] Protocol Oxycodone HCl 5 mg 08/07/17 09:46 08/08/17 07:56 Roxicodone - PO 5 mg Q4H PRN Administration PAIN Raltegravir 400 mg 08/06/17 23:30 08/07/17 21:01 Isentress - PO 400 mg BID BRY Administration Laboratory Results - last 24 hr 08/08/17 08/08/17 08:10 08:10 WBC 6.0 RBC 3.98 L Hgb 11.3 L Hct 34.8 L MCV 87.5 MCH 28.5 MCHC 32.5 RDW 17.1 H Plt Count 183 MPV 8.1 Neutrophils % 67.5 Lymphocytes % 18.3 D Monocytes % 10.3 H Eosinophils % 3.7 Basophils % 0.2 Sodium 143 Potassium 3.6 Chloride 112 H Carbon Dioxide 25 Anion Gap 6 L BUN 20 H D Creatinine 1.0 Random Glucose 109 H Calcium 7.6 L Microbiology 08/06/17 21:12 Urine - Urine Clean Catch Urine Culture - Preliminary Lactose Fermenting Neg Bacilli 08/06/17 19:41 Blood - Peripheral Venous Blood Culture - Preliminary NO GROWTH OBTAINED AFTER 24 HOURS, INCUBATION TO CONTINUE FOR 4 DAYS. 08/06/17 19:42 Blood - Peripheral Venous Blood Culture - Preliminary NO GROWTH OBTAINED AFTER 24 HOURS, INCUBATION TO CONTINUE FOR 4 DAYS. ASSESSMENT AND PLAN: 77 yom with HIV on HAART, (Last CD4 ?195 in 06/2017), HTN, nephrolithiasis, recent ESWL with left Ureteral JJ stent placement 07/23 admitted with complicated UTI/left sided pyelonephritis. -Complicated UTI with Left pyelonephritis -Recent ESWL with left ureteral JJ stent placement 07/23 -HTN -HIV on HAART (last CD4 ?195 in 06/2017) -Constipation Plan: Ceftriaxone day 3,blood cultures neg so far. Urine cultures noted. ID input appreciated. Urology input noted. PLan for cystoscopy/L JJ stent removal once infection has resolved. Continue home HAART. Pain control with home oxycodone prn, bowel regimen DVTPPX lovenox Dispo d/c in 24 hours spending improvement in symptoms, culture results and ID/ urology input. Plan discussed with patient in detail, all questions answered.
--- NOTE | 2017-08-08 08:22 | PN ---
Physical Exam: SUBJECTIVE: Patient seen and examined at bedside. Patient states that he is uncomfortable and that he has been urinating every hour and has urinary incontinence. Patient states it doesn't burn when he urinates, but that he does go very frequently and that he isn't able to sleep. Denies pain, chest pain, SOB , nausea, vomiting, diarrhea. OBJECTIVE: Vital Signs Period Temp Pulse Resp BP Sys/Varela Pulse Ox Last 24 Hr 97.9 F-98.9 F 73-82 18-20 127-147/61-73 95-96 GENERAL: The patient is awake, alert, and fully oriented, in no acute distress. HEAD: Normal with no signs of trauma. EYES: PERRL, extraocular movements intact, sclera anicteric, conjunctiva clear. No ptosis. ENT: Ears normal, nares patent, oropharynx clear without exudates, moist mucous membranes. NECK: Trachea midline, full range of motion, supple. LUNGS: Breath sounds equal, clear to auscultation bilaterally, no wheezes, no crackles, no accessory muscle use. HEART: Regular rate and rhythm, S1, S2 without murmur, rub or gallop. ABDOMEN: Obese, Soft, nontender, nondistended, normoactive bowel sounds, no guarding, no rebound, no hepatosplenomegaly, no masses. : [place] catheter not visualized. Laboratory Results - last 24 hr 08/07/17 08/07/17 08/07/17 06:00 07:45 07:45 WBC 6.4 RBC 3.94 L Hgb 11.2 L Hct 34.9 L MCV 88.6 MCH 28.5 MCHC 32.1 RDW 17.1 H Plt Count 177 D MPV 8.3 Neutrophils % 79.4 Lymphocytes % 8.8 D Monocytes % 8.0 D Eosinophils % 3.6 D Basophils % 0.2 ESR PT with INR 13.00 H INR 1.15 H Sodium Potassium Chloride Carbon Dioxide Anion Gap BUN Creatinine Creat Clearance w eGFR Random Glucose Calcium Phosphorus Magnesium Total Bilirubin AST ALT Alkaline Phosphatase C-Reactive Protein Total Protein Albumin Ur Random Sodium 106 Ur Random Potassium 26.4 Ur Random Chloride 88 08/07/17 08/07/17 08/07/17 07:45 07:45 07:45 WBC RBC Hgb Hct MCV MCH MCHC RDW Plt Count MPV Neutrophils % Lymphocytes % Monocytes % Eosinophils % Basophils % ESR 45 H PT with INR INR Sodium 142 Potassium 3.8 Chloride 110 H Carbon Dioxide 24 Anion Gap 8 BUN 27 H Creatinine 1.0 Creat Clearance w eGFR > 60 Random Glucose 102 Calcium 7.5 L Phosphorus 2.7 Magnesium 2.1 Total Bilirubin 1.0 D AST 20 D ALT 24 Alkaline Phosphatase 124 H C-Reactive Protein 4.2 H Total Protein 6.3 L Albumin 3.0 L Ur Random Sodium Ur Random Potassium Ur Random Chloride Active Medications Generic Name Dose Route Start Last Admin Trade Name Freq PRN Reason Stop Dose Admin Acetaminophen 325 mg 08/07/17 09:46 08/08/17 07:55 Tylenol - PO 08/10/17 09:45 325 mg Q4H PRN Administration PAIN Amoxicillin 500 mg 08/07/17 09:30 08/07/17 21:01 Amoxicillin - PO 500 mg BID BRY Administration Docusate Sodium 100 mg 08/07/17 14:15 08/07/17 14:54 Colace - PO Not Given DAILY BRY Emtricitabine/Tenofovir 1 tab 08/06/17 23:15 08/07/17 09:51 Truvada PO 1 tab DAILY BRY Administration Enoxaparin Sodium 40 mg 08/08/17 10:00 Lovenox - SQ DAILY BRY Sodium Chloride 1,000 mls @ 75 mls/hr 08/06/17 23:15 08/08/17 06:12 Normal Saline - IV 75 mls/hr ASDIR BRY Administration CEFTRIAXONE 1 G/50 ML PREMIX 50 mls @ 100 mls/hr 08/07/17 10:00 08/07/17 09: 51 Ceftriaxone 1 Gm-D5w Bag IVPB 100 mls/hr DAILY BRY Administration Insulin Aspart 1 vial 08/06/17 23:15 08/08/17 06:15 Novolog Vial Sliding Scale - SQ Not Given ACHS [facility] Protocol Oxycodone HCl 5 mg 08/07/17 09:46 08/08/17 07:56 Roxicodone - PO 5 mg Q4H PRN Administration PAIN Raltegravir 400 mg 08/06/17 23:30 08/07/17 21:01 Isentress - PO 400 mg BID BRY Administration ASSESSMENT/PLAN: 77 yo M with a PMHx of HIV, HTN, ESWL for Nephrolithiasis, L. Sided double J- stent placement (07/23), and urinary incontinence, presents with weakness and left flank pain, being admitted for sepsis due to Pyelonephritis. #Sepsis secondary to Pyelonephritis: improving -WBC normal, afebrile, less symptomatic -continue ceftriaxone day 3 -blood cultures negative -urine cultures grew gram (-) lactose fermenting bacilli, after sensitivity change to PO medication -lactic acid normalized -hold fluids, patient is eating -ID consult appreciated -Dr Izaguirre (urology) consult appreciated - will remove stent and do cystoscopy after infection resolved -CT abdomen shows perinephric fat stranding #Acute kidney injury: resolved -IV fluids -avoid nephrotoxic agents #HIV infection: -Continue truvada -ID consult appreciated #Pain Control: -continue percorcet form home -start on home gabapentin #B/L LE Edema: -Duplex negative for DVT #Hx of Infection of Hip Prosthesis: -continue home amoxicillin -ESR/CRP #Diabetes Mellitus -BGM -ISS #FEN -stop fluids today -Replete electrolytes as necessary -Diabetic diet #DVT Prophylaxis -SCD's Disposition: -Continue to monitor on med-surg Visit type - Emergency Visit Emergency Visit: No - New Patient This patient is new to me today: No - Critical Care Critical Care patient: No
[2017-08-08 08:39] LABS: BASOPHIL 0.2 % (0-2.0); EOSINOPHIL 3.7 % (0-4.5); MCH 28.5 pg (25.7-33.7); MCHC 32.5 g/dl (32.0-35.9); MEAN CELL VOLUME 87.5 fl (80-96); MEAN PLT VOLUME 8.1 fl (7.5-11.1); NEUTROPHILS 67.5 % (42.8-82.8); PLATELET COUNT 183 K/MM3 (134-434); RDW 17.1 % (11.9-15.9)
[2017-08-08] MEDS ORDERED: PT OWN MED DRAWER 7, Y5N ONE ×2 (09:14→21:18)
[2017-08-08 09:16] LABS: ANION GAP 6 (8-16); CALCIUM 7.6 mg/dL (8.5-10.1); CO2 25 mmol/L (21-32); GLUCOSE,RANDOM 109 mg/dL (74-106)
[2017-08-08] MEDS: AMOXICILLIN 500 MG CAPSULE (FP) PO SCH ×2 (09:16→21:20)
[2017-08-08] MEDS: RALTEGRAVIR POTASSIUM 400 MG TAB PO SCH ×2 (09:17→21:20)
[2017-08-08] MEDS: CEFTRIAXONE 1 G/50 ML PREMIX 50 ML IVPB SCH (09:17)
[2017-08-08] MEDS: DOCUSATE SODIUM 100 MG CAPSULE (FP) PO SCH (09:17)
[2017-08-08] MEDS: EMTRICITABINE 200MG/TENOFOVIR 300MG PO SCH (09:19)
[2017-08-08] MEDS: ENOXAPARIN NA (PORCINE) 40 MG/0.4 ML DISP.SYRIN SQ SCH (09:19)
[2017-08-08] MEDS: amLODIPine BESYLATE 5 MG TABLET (FP) PO SCH (10:51)
[2017-08-08] MEDS: GABAPENTIN 400 MG CAPSULE (FP) PO SCH ×2 (14:16→21:19)
--- NOTE | 2017-08-08 16:11 | PN ---
Progress Note (short form) - Note Progress Note: still with flank pain Vital Signs Period Temp Pulse Resp BP Sys/Varela Pulse Ox Last 24 Hr 97.9 F-98.7 F 67-82 18-20 132-147/61-77 95-97 cor-rrr lungs clear abd soft,nt ext no edema CBC, BMP 08/08/17 08:10 08/08/17 08:10 Microbiology 08/06/17 21:12 Urine - Urine Clean Catch Urine Culture - Preliminary Lactose Fermenting Neg Bacilli 08/06/17 19:41 Blood - Peripheral Venous Blood Culture - Preliminary NO GROWTH OBTAINED AFTER 24 HOURS, INCUBATION TO CONTINUE FOR 4 DAYS. 08/06/17 19:42 Blood - Peripheral Venous Blood Culture - Preliminary NO GROWTH OBTAINED AFTER 24 HOURS, INCUBATION TO CONTINUE FOR 4 DAYS. 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
--- NOTE | 2017-08-08 17:50 | MSN ---
Progress Note (short form) - Note Progress Note: Subjective: Jorge Luis Francois is a 77 yo M w/ pmhx of HIV (CD4: 195, VL: undetectable), HTN, DM , recent nephrolithiasis, s/p ESWL (07/23), s/p JJ stent placement in left ureter (Jun 2017) who was admitted for sepsis due to pyelonephritis. Patient seen and examined today. Patient complaints of urinary frequency and incontinence. Patient states he took off his [place] catheter. Patient states he was unable to sleep last night because he had to urinate every hour. Patient currently denies flank pain but states that his left flank is sore. Patient also denies fever, chills, SOB, hematuria, dysuria, lower extremity edema, nausea, vomting, diarrhea or abdominal pain. Patient states that he last had a bowel movement this morning without any blood, mucous or diarrhea. Objective: Last Vital Signs Temp Pulse Resp BP Pulse Ox 97.9 F 71 18 132/71 97 08/08/17 15:15 08/08/17 15:15 08/08/17 15:15 08/08/17 15:15 08/08/17 09:54 Physical Exam: General: well-appearing, calm, in no acute distress Heart: RRR without MRG Lungs: CTA bilaterally without RRW Abdomen: Soft, non-tender, non-distended, bowel sounds present and normoactive, +mild left CVA tenderness, no right CVA tenderness, no suprapubic tenderness MSK: Extremties: no lower extremity edema bilaterally, DP palpable and 2+ bilaterally Laboratory Results - last 24 hr 08/08/17 08/08/17 08:10 08:10 WBC 6.0 RBC 3.98 L Hgb 11.3 L Hct 34.8 L MCV 87.5 MCH 28.5 MCHC 32.5 RDW 17.1 H Plt Count 183 MPV 8.1 Neutrophils % 67.5 Lymphocytes % 18.3 D Monocytes % 10.3 H Eosinophils % 3.7 Basophils % 0.2 Sodium 143 Potassium 3.6 Chloride 112 H Carbon Dioxide 25 Anion Gap 6 L BUN 20 H D Creatinine 1.0 Random Glucose 109 H Calcium 7.6 L Microbiology 08/06/17 21:12 Urine - Urine Clean Catch Urine Culture - Preliminary Lactose Fermenting Neg Bacilli 08/06/17 19:41 Blood - Peripheral Venous Blood Culture - Preliminary NO GROWTH OBTAINED AFTER 24 HOURS, INCUBATION TO CONTINUE FOR 4 DAYS. 08/06/17 19:42 Blood - Peripheral Venous Blood Culture - Preliminary NO GROWTH OBTAINED AFTER 24 HOURS, INCUBATION TO CONTINUE FOR 4 DAYS. Current Medications Generic Name Dose Route Start Last Admin Trade Name Luly PRN Reason Stop Dose Admin Acetaminophen 325 mg 08/07/17 09:46 08/08/17 12:42 Tylenol - PO 08/10/17 09:45 325 mg Q4H PRN Administration PAIN Amlodipine Besylate 10 mg 08/08/17 10:00 08/08/17 10:51 Norvasc - PO 10 mg DAILY BRY Administration Amoxicillin 500 mg 08/07/17 09:30 08/08/17 09:16 Amoxicillin - PO 500 mg BID BRY Administration Docusate Sodium 100 mg 08/07/17 14:15 08/08/17 09:17 Colace - PO 100 mg DAILY BRY Administration Emtricitabine/Tenofovir 1 tab 08/06/17 23:15 08/08/17 09:19 Truvada PO 1 tab DAILY BRY Administration Enoxaparin Sodium 40 mg 08/08/17 10:00 08/08/17 09:19 Lovenox - SQ 40 mg DAILY BRY Administration Gabapentin 400 mg 08/08/17 14:00 08/08/17 14:16 Neurontin - PO 400 mg TID BRY Administration CEFTRIAXONE 1 G/50 ML PREMIX 50 mls @ 100 mls/hr 08/07/17 10:00 08/08/17 09: 17 Ceftriaxone 1 Gm-D5w Bag IVPB 100 mls/hr DAILY BRY Administration Insulin Aspart 1 vial 08/06/17 23:15 08/08/17 16:24 Novolog Vial Sliding Scale - SQ Not Given ACHS BRY Protocol Oxycodone HCl 5 mg 08/07/17 09:46 08/08/17 16:53 Roxicodone - PO 5 mg Q4H PRN Administration PAIN Raltegravir 400 mg 08/06/17 23:30 08/08/17 09:17 Isentress - PO 400 mg BID BRY Administration Home Medications Medication Instructions Recorded Emtricitabine/Tenofovir [Truvada -] 1 tab PO DAILY 08/18/13 Amlodipine Besylate [Norvasc -] 10 mg PO DAILY 09/08/14 Metformin HCl 500 mg PO DAILY 07/01/16 Amoxicillin 500 mg PO BID 07/15/17 Gabapentin 400 mg PO BID 07/15/17 Oxycodone HCl/Acetaminophen 1 - 2 tab PO Q4H 07/23/17 [Percocet 5-325 mg Tablet] Raltegravir [Isentress -] 400 mg PO BID 08/06/17 A/P: Jorge Luis Francois is a 77 yo M w/ pmhx of HIV (CD4: 195, VL: undetectable), HTN, DM , recent nephrolithiasis, s/p ESWL (07/23), s/p JJ stent placement in left ureter (Jun 2017) who was admitted for sepsis due to pyelonephritis. 1. Sepsis secondary to pyelonephritis - WBC 6.4, afebrile, vitals WNL, blood culture negative - Sepsis resolved 2. Pyelonephritis s/p JJ Stent placement - Urology on board- Dr. Izaguirre - Ceftriaxone- day 3 - Fluids- 1L NS - Urine culture positive for Gram negative lactose fermenting bacilli, >100,000 CFU - Waiting on sensitivity panel, if patient sensitive to Rocephin, will discharge with Rocephin PO - Once UTI resolves, follow up with urologist for cystoscopy and JJ stent removal - Pain control with Roxicodone, Tylenol 3. HTN - COntinue Amlodipine 10 mg PO daily 4. DM - ISS on board - Continue Gabapentin 400 mg PO TID 5. HIV - CD4 count 195, viral load undetectable - Continue Truvada PO daily 1 tab - Continue Isentress 400 mg PO BID 6. Infection s/p hip replacement - Amoxicillin 500 mg PO BID lifelong 7. Constipation - Continue Colace 100 mg PO daily 8. DVT proph - [id number] mg SQ daily Dispo: Discharge in the morning after sensitivity panel returns. Follow up outpatient with urologist.
[2017-08-09] MEDS: oxyCODONE HCL 5 MG TABLET PO PRN ×3 (02:42→11:57)
[2017-08-09] MEDS: ACETAMINOPHEN 325 MG TABLET (FP) PO PRN ×2 (02:43→07:14)
[2017-08-09] MEDS: GABAPENTIN 400 MG CAPSULE (FP) PO SCH (06:02)
[2017-08-09] MEDS: INSULIN SLIDING SCALE (NOVOLOG) 1 VIAL SQ SCH (06:14)
[2017-08-09 09:09] LABS: MCH 28.9 pg (25.7-33.7); MCHC 32.9 g/dl (32.0-35.9); MEAN CELL VOLUME 88.1 fl (80-96); MEAN PLT VOLUME 8.4 fl (7.5-11.1); PLATELET COUNT 201 K/MM3 (134-434); RDW 17.4 % (11.9-15.9); WHITE BLOOD COUNT 6.3 K/mm3 (4.0-10.0)
[2017-08-09 09:26] LABS: ANION GAP 8 (8-16); CALCIUM 8.2 mg/dL (8.5-10.1); CO2 26 mmol/L (21-32); CREATININE 0.9 mg/dL (0.7-1.3); GLUCOSE,RANDOM 98 mg/dL (74-106)
[2017-08-09] MEDS ORDERED: PT OWN MED DRAWER 7, Y5N ONE (09:43)
[2017-08-09] MEDS: amLODIPine BESYLATE 5 MG TABLET (FP) PO SCH (09:46)
[2017-08-09] MEDS: DOCUSATE SODIUM 100 MG CAPSULE (FP) PO SCH (09:47)
[2017-08-09] MEDS: CEFTRIAXONE 1 G/50 ML PREMIX 50 ML IVPB SCH (09:47)
[2017-08-09] MEDS: ENOXAPARIN NA (PORCINE) 40 MG/0.4 ML DISP.SYRIN SQ SCH (09:47)
[2017-08-09] MEDS: AMOXICILLIN 500 MG CAPSULE (FP) PO SCH (09:48)
[2017-08-09] MEDS: RALTEGRAVIR POTASSIUM 400 MG TAB PO SCH (09:48)
[2017-08-09] MEDS: EMTRICITABINE 200MG/TENOFOVIR 300MG PO SCH (09:49)
[2017-08-09 12:12] VITALS: PULSE 65
[2017-08-09 12:18] VITALS: BP 124/75; TEMP 98.2
--- NOTE | 2017-08-09 12:20 | PN ---
Progress Note (short form) - Note Progress Note: doing well no complaints no fevers since admission Vital Signs Period Temp Pulse Resp BP Sys/Varela Pulse Ox Last 24 Hr 97.9 F-98.4 F 65-77 18-20 123-148/59-78 97-98 cor-rrr lungs decreased bs at bases abd soft,nt ext no edema CBC, BMP 08/09/17 08:55 08/09/17 08:55 Microbiology 08/06/17 21:12 Urine - Urine Clean Catch Urine Culture - Final Escherichia Coli 08/06/17 19:41 Blood - Peripheral Venous Blood Culture - Preliminary NO GROWTH OBTAINED AFTER 48 HOURS, INCUBATION TO CONTINUE FOR 3 DAYS. 08/06/17 19:42 Blood - Peripheral Venous Blood Culture - Preliminary NO GROWTH OBTAINED AFTER 48 HOURS, INCUBATION TO CONTINUE FOR 3 DAYS. a/p fever-uti, ecoli- can switch to ceftin 500 bid for 10 days, should f/u with urology hiv- stable, continue truvada/isentress, f/u PMD history of left hip infection-continue chronic suppression with amox sulfa allergy d/w Hospitalist service Problem List - Problems (1) Fever Code(s): R50.9 - FEVER, UNSPECIFIED (2) UTI (urinary tract infection) Code(s): N39.0 - URINARY TRACT INFECTION, SITE NOT SPECIFIED (3) HIV (human immunodeficiency virus infection) Code(s): B20 - HUMAN IMMUNODEFICIENCY VIRUS [HIV] DISEASE (4) Allergy to sulfa drugs Code(s): Z88.2 - ALLERGY STATUS TO SULFONAMIDES STATUS
--- NOTE | 2017-08-09 12:49 | DS ---
Physical Exam: SUBJECTIVE: Patient seen and examined at bedside. Patient denies further abdominal pain. Patient has no burning on urination. Denies fevers or chills. Some slight chronic back pain remains but nothing acute. OBJECTIVE: Vital Signs Period Temp Pulse Resp BP Sys/Varela Pulse Ox Last 24 Hr 97.9 F-98.4 F 65-77 18-20 123-148/59-78 97-98 PHYSICAL EXAM GENERAL: The patient is awake, alert, and fully oriented, in no acute distress. HEAD: Normal with no signs of trauma. EYES: PERRL, extraocular movements intact, sclera anicteric, conjunctiva clear. No ptosis. ENT: Ears normal, nares patent, oropharynx clear without exudates, moist mucous membranes. NECK: Trachea midline, full range of motion, supple. LUNGS: Breath sounds equal, clear to auscultation bilaterally, no wheezes, no crackles, no accessory muscle use. HEART: Regular rate and rhythm, S1, S2 without murmur, rub or gallop. ABDOMEN: Obese, Soft, nontender, nondistended, normoactive bowel sounds, no guarding, no rebound, no hepatosplenomegaly, no masses. : [place] catheter not visualized. LABS Laboratory Results - last 24 hr 08/09/17 08/09/17 08:55 08:55 WBC 6.3 RBC 4.20 Hgb 12.2 Hct 37.0 MCV 88.1 MCH 28.9 MCHC 32.9 RDW 17.4 H Plt Count 201 MPV 8.4 Sodium 142 Potassium 4.0 Chloride 108 H Carbon Dioxide 26 Anion Gap 8 BUN 20 H Creatinine 0.9 Random Glucose 98 Calcium 8.2 L HOSPITAL COURSE: Date of Admission:08/06/17 77 year old male with a past medical history of HIV, HTN, ESWL, for nephrolithiasis, L sided double J stent placement on 07/23, and urinary incontinence presented to the ED due to constant left sided flank pain and fevers/chills that began earlier that day. Patient was admitted to the hospital for treatment of sepsis secondary to pyelonephritis. Patient's CT scan revealed perinephric fat stranding. Patient was treated with a course of ceftriaxone as an inpatient. His urine cultures grew lactose fermenting gram negative bacilli. Dr. Izaguirre, his urologist was consulted who agreed to perform cystoscopy and remove the stent after the infection has resolved. After 3 days of antibiotic treatment, patient was sent home on a course of ceftin 500 PO for 10 days as an outpatient and a referral to followup with his urologist and primary care physician after discharge. Date of Discharge: 08/09/17 Minutes to complete discharge: 30 Discharge Summary Reason For Visit: SEPSIS Current Active Problems Allergy to sulfa drugs (Acute) Fever (Acute) HIV (human immunodeficiency virus infection) (Acute) Sepsis (Acute) UTI (urinary tract infection) (Acute) Condition: Stable - Instructions Diet, Activity, Other Instructions: You have been treated in the hospital for urinary tract infection. You were given antibiotics during the hospital stay to clear the infection. You will need to take further antibiotics at home. Much of your burning in your back is likely due to the stent being present in your left ureter. The stent will be removed by your urologist. Medical Recommendations: -Take Ceftin 500mg by mouth twice a day for 10 days starting tomorrow, August 09. Make sure you take these antibiotics as prescribed every day without missing doses, or you run the risk of re-infection. -You need to make an appointment with the urologist, Dr. Izaguirre, within 1 week of discharge for cystoscopy and stent removal. -Please make an appointment with your primary care physician within 1 week of discharge. If you begin to get fevers, chills, nausea, vomiting, worsening belly pain or urinary symptoms, please call your doctor. If these are severe, come to the emergency room immediately. Referrals: Graham Izaguirre MD [Staff Physician] - Disposition: HOME - Home Medications Comprehensive Discharge Medication List: Ambulatory Orders Emtricitabine/Tenofovir [Truvada -] 1 tab PO DAILY 08/18/13 Amlodipine Besylate [Norvasc -] 10 mg PO DAILY 09/08/14 Metformin HCl 500 mg PO DAILY 07/01/16 Amoxicillin 500 mg PO BID 07/15/17 Gabapentin 400 mg PO BID 07/15/17 Oxycodone HCl/Acetaminophen [Percocet 5-325 mg Tablet] 1 - 2 tab PO Q4H Raltegravir [Isentress] 400 mg PO BID 08/06/17 Cefuroxime Axetil [Ceftin -] 500 mg PO Q12H #20 tablet 08/09/17 This patient is new to me today: No Emergency Visit: No Critical Care patient: No - Discharge Referral Referred to [facility] No
--- NOTE | 2017-08-09 12:51 | PN ---
Teaching Attending Note Name of Resident: Luis Daniel Duarte ATTENDING PHYSICIAN STATEMENT Time of evaluation:10:30 AM I saw and evaluated the patient. I reviewed the resident's note and discussed the case with the resident. I agree with the resident's findings and plan as documented. SUBJECTIVE: Patient seen and examined, left back soreness overall unchanged. No new complaints. OBJECTIVE: Vital Signs Period Temp Pulse Resp BP Sys/Varela Pulse Ox Last 24 Hr 97.9 F-98.4 F 65-77 18-20 123-148/59-78 97-98 Intake & Output 08/06/17 08/07/17 08/08/17 08/09/17 23:59 23:59 23:59 23:59 Intake Total 1575 650 Output Total 650 575 500 Balance 925 75 -500 Weight 218 lb 8 oz 218 lb 9 oz 219 lb 6 oz 215 lb 1 oz General: lying in bed in no acute distress Abdomen: mild left CVA soreness, otherwise, soft, NT, ND, Home Medication List Medication Instructions Recorded Confirmed Type Emtricitabine/Tenofovir [Truvada -] 1 tab PO DAILY 08/18/13 08/06/17 History Amlodipine Besylate [Norvasc -] 10 mg PO DAILY 09/08/14 08/06/17 History Metformin HCl 500 mg PO DAILY 07/01/16 08/06/17 History Amoxicillin 500 mg PO BID 07/15/17 08/06/17 History Gabapentin 400 mg PO BID 07/15/17 08/06/17 History Oxycodone HCl/Acetaminophen 1 - 2 tab PO Q4H 07/23/17 08/06/17 History [Percocet 5-325 mg Tablet] Raltegravir [Isentress] 400 mg PO BID 08/06/17 08/06/17 History Active Medications Generic Name Dose Route Start Last Admin Trade Name Freq PRN Reason Stop Dose Admin Acetaminophen 325 mg 08/07/17 09:46 08/09/17 07:14 Tylenol - PO 08/10/17 09:45 325 mg Q4H PRN Administration PAIN Amlodipine Besylate 10 mg 08/08/17 10:00 08/09/17 09:46 Norvasc - PO 10 mg DAILY BRY Administration Amoxicillin 500 mg 08/07/17 09:30 08/09/17 09:48 Amoxicillin - PO 500 mg BID BRY Administration Docusate Sodium 100 mg 08/07/17 14:15 08/09/17 09:47 Colace - PO 100 mg DAILY BRY Administration Emtricitabine/Tenofovir 1 tab 08/06/17 23:15 08/09/17 09:49 Truvada PO 1 tab DAILY BRY Administration Enoxaparin Sodium 40 mg 08/08/17 10:00 08/09/17 09:47 Lovenox - SQ 40 mg DAILY BRY Administration Gabapentin 400 mg 08/08/17 14:00 08/09/17 06:02 Neurontin - PO 400 mg TID BRY Administration CEFTRIAXONE 1 G/50 ML PREMIX 50 mls @ 100 mls/hr 08/07/17 10:00 08/09/17 09: 47 Ceftriaxone 1 Gm-D5w Bag IVPB 100 mls/hr DAILY BRY Administration Insulin Aspart 1 vial 08/06/17 23:15 08/09/17 06:14 Novolog Vial Sliding Scale - SQ Not Given ACHS [facility] Protocol Oxycodone HCl 5 mg 08/07/17 09:46 08/09/17 11:57 Roxicodone - PO 5 mg Q4H PRN Administration PAIN Raltegravir 400 mg 08/06/17 23:30 08/09/17 09:48 Isentress - PO 400 mg BID BRY Administration Microbiology 08/06/17 21:12 Urine - Urine Clean Catch Urine Culture - Final Escherichia Coli 08/06/17 19:41 Blood - Peripheral Venous Blood Culture - Preliminary NO GROWTH OBTAINED AFTER 48 HOURS, INCUBATION TO CONTINUE FOR 3 DAYS. 08/06/17 19:42 Blood - Peripheral Venous Blood Culture - Preliminary NO GROWTH OBTAINED AFTER 48 HOURS, INCUBATION TO CONTINUE FOR 3 DAYS. ASSESSMENT AND PLAN: 77 yom with HIV on HAART, (Last CD4 ?195 in 06/2017), HTN, nephrolithiasis, recent ESWL with left Ureteral JJ stent placement 07/23 admitted with complicated UTI/left sided pyelonephritis. -Complicated UTI with Left pyelonephritis -Recent ESWL with left ureteral JJ stent placement 07/23 -HTN -HIV on HAART (last CD4 ?195 in 06/2017) -Constipation Plan: Urine cultures noted, discussed with Dr. Cardoso, ceftin for 10 days, outpatient urology follow up in 1 week for cystscopy and stent removal. Discussed with patient and all questions answered. D/c home today.
== END 2017-08-09 15:00 | disposition home or self-care (01) | DRG 919 ==
LOC: JER 18:52 → JERBED 22:04 → J6S 23:45
PROVIDERS: ADMIT Internal Medicine; ATTEND Hospitalist
DX: T85.79XA Infection and inflammatory reaction due to other internal prosthetic devices, implants and grafts, initial encounter (principal); A41.9 Sepsis, unspecified organism; N10 Acute pyelonephritis; N17.9 Acute kidney failure, unspecified; J98.11 Atelectasis; Z21 Asymptomatic human immunodeficiency virus [HIV] infection status; E11.9 Type 2 diabetes mellitus without complications; K59.00 Constipation, unspecified; Z88.2 Allergy status to sulfonamides; Y83.9 Surgical procedure, unspecified as the cause of abnormal reaction of the patient, or of later complication, without mention of misadventure at the time of the procedure
CPT/HCPCS: 36415; 71010-TC; 74176-TC; 80048; 80053; 81003; 81015; 82436; 82550; 82553; 82803; 83605; 83735; 84100; 84133; 84300; 84484; 85025; 85027; 85610; 85651; 85730; 86140; 86850; 86900; 86901; 87040; 87086; 87186; 93005; 93010; 93970-TC; 94010; 99284-25

== ENCOUNTER 2017-10-30 09:04 | Day surgery (SDC) | payer OTHER ==
[2017-10-25 10:21] VITALS: BMI 34.4
--- NOTE | 2017-10-30 09:44 | HP ---
Satellite H - Chief Complaint Chief Complaint: left hand pain, numbness, weakness History of Present Illness: left CTS Limitations to Obtaining History: No Limitations - Past Medical History Allergies/Adverse Reactions: Allergies Allergy/AdvReac Type Severity Reaction Status Date / Time Sulfa (Sulfonamide Allergy Mild Rash Verified 10/25/17 10:12 Antibiotics) Renal/: Yes: BPH, Renal Calculi, UTI Infectious Disease: Yes: HIV - Current Medications Current Medications: Home Medications Medication Instructions Recorded Emtricitabine/Tenofovir [Truvada -] 1 tab PO DAILY 08/18/13 Amlodipine Besylate [Norvasc -] 10 mg PO DAILY 09/08/14 Metformin HCl 500 mg PO DAILY 07/01/16 Amoxicillin 500 mg PO BID 07/15/17 Gabapentin 400 mg PO BID 07/15/17 Oxycodone HCl/Acetaminophen 1 - 2 tab PO Q4H 07/23/17 [Percocet 5-325 mg Tablet] Raltegravir [Isentress] 400 mg PO BID 08/06/17 Satellite Physical Exam - Physical Examination Vital Signs: Vital Signs Period Temp Pulse Resp BP Sys/Varela Pulse Ox Last 24 Hr 98 F 82 18 140/82 General Appearance: Well Nourished ENT: Clear Lung: Clear to auscultation Heart: Regular rate & rhythm, Rubs Breasts: Soft Abdomen: Soft Extremities: No edema Satellite Impression/Plan - Impression/Plan Impression: left CTS Operative Procedure: left CTR Date to be Performed: 10/30/17
[2017-10-30] MEDS ORDERED: BUPIVACAINE HCL/PF 0.5% (5MG/ML) 10 ML VIAL ONE (10:44)
[2017-10-30] MEDS ORDERED: oxyCODONE HCL 5 MG TABLET PO PRN ×2 (10:44)
[2017-10-30] MEDS ORDERED: LACTATED RINGERS SOLUTION 1,000 ML IV SCH (10:45)
[2017-10-30] MEDS ORDERED: MIDAZOLAM HCL 2 MG/2 ML SINGLE DOSE VIAL ONE (10:56)
[2017-10-30] MEDS ORDERED: PROPOFOL 20 ML ONE (10:56)
[2017-10-30] MEDS ORDERED: ceFAZolin SODIUM 1 GM VIAL IVPB ONE (11:30)
[2017-10-30] MEDS ORDERED: ceFAZolin SODIUM 1 GM VIAL ONE (11:32)
--- NOTE | 2017-10-30 11:51 | OP ---
Operative Note - Note: Operative Date: 10/30/17 ([facility]) Pre-Operative Diagnosis: left cts Operation: left ctr, tenosynovectomy Post-Operative Diagnosis: Same as Pre-op Surgeon: Han Delgado Anesthesiologist/WEIGH BOSS: Maru Ha Anesthesia: Local, MAC Specimens Removed: tenosynovium Estimated Blood Loss (mls): 0 (tourniquet) Operative Report Dictated: Yes
[2017-10-30] MEDS ORDERED: BUPIVACAINE HCL/PF 0.5% (5MG/ML) 10 ML VIAL IJ ONE (12:09)
[2017-10-30 13:23] VITALS: TEMP 97.6
[2017-10-30 15:22] VITALS: BP 123/71; PULSE 67
--- NOTE | 2017-10-30 17:13 | SPEC ---
DATE OF OPERATION: DATE OF DICTATION: 10/30/2017 PREOPERATIVE DIAGNOSIS: Left carpal tunnel syndrome and ring finger trigger finger. POSTOPERATIVE DIAGNOSIS: Left carpal tunnel syndrome and ring finger trigger finger. PROCEDURE: left carpal tunnel release, tenosynovectomy, and ring finger, trigger finger release. SURGEON: Han Delgado M.D. MANAGER LANDSCAPE: None. ANESTHESIA: MAC anesthesia, local injection of 12 mL 0.5% Marcaine, 1% lidocaine mix. DRAINS: None. COMPLICATIONS: None. SPECIMEN: Tenosynovium left wrist. BLOOD LOSS: None. BLOOD GIVEN: None. FLUID REPLACEMENT: 700 mL. INDICATION: This patient is a 77-year-old male with preoperative diagnosis of left carpal tunnel syndrome and a recurrent ring finger, trigger finger. After understanding the potential risks, complications, alternatives, benefits to surgery versus nonsurgical treatment, the patient elected to pursue this procedure. He understands the symptoms may not get completely better. CARPAL TUNNEL RELEASE PROCEDURE: The patient was brought to the operating room, peripheral IV placed and intravenous sedation was given. One gram of intravenous Ancef was given. MAC anesthesia was induced. A tourniquet was applied to the left upper arm and the left upper extremity was prepped and draped in sterile fashion. The entire case was done under 3.8 loupe magnification. A marking pen was utilized to kristie out a longitudinal incision in an already existing skin crease. Twenty mL of 0.5% Marcaine mixed with 1% Lidocaine was injected in and around the surgical incision. The left upper extremity was elevated, exsanguinated with an Esmarch bandage and the tourniquet inflated to 250 mmHg. A No. 15 scalpel blade was utilized to cut down through the skin. Subcutaneous hemostasis was achieved with the bipolar cautery. Dissection was done through the superficial palmar fascia. Self-retaining retractors were placed into the wound. Under direct visualization, the transverse carpal ligament was transected with a No. 15 scalpel blade, exposing the median nerve and the contents of the carpal tunnel. The distal and proximal extents of the release were completed with a Littler scissor and checked with irrigation and my small finger. They were seen to be complete. Limited dissection was done on the radial side of the median nerve and more extensive dissection was done on the ulnar side of the median nerve. The patients nerve was seen to be quite compressed by epineurium and therefore a limited epineurotomy was performed. A Ragnell retractor was used to gently retract the median nerve in a radial direction. The patient had a lot of tenosynovitis and therefore a tenosynovectomy was performed off all 9 flexor tendons. This was passed off the field as tenosynovium left wrist. The floor of the carpal tunnel was checked. There were no abnormal masses or ganglion cysts. The area was copiously irrigated and washed out and closure begun. Undyed 4-0 Vicryl was used to close the deep dermal layer. Final skin reapproximation was done with horizontal mattress 4-0 nylon sutures. The area was then washed and dried, covered with Xeroform, 4x4s, fluffs between the fingers, Webril and a 4-inch plaster roll was utilized to make a volar splint, which was then wrapped with Namrata and Coban. The tourniquet was taken down after a total tourniquet time of 30 minutes. There were no complications during the case. The patient tolerated the procedure well and was brought to the ambulatory recovery room in stable condition. TRIGGER FINGER RELEASE PROCEDURE: The patient was brought to the operating room, IV was placed, IV sedation was given. One gram of intravenous Ancef given. A tourniquet was applied to the left upper arm and the left upper extremity was prepped and draped in sterile fashion. The entire case was done under 3.8 loupe magnification. A marking pen was utilized to kristie out a longitudinal incision in an already existing skin crease at the base of the left ring finger. Then 10 mL of 0.5% Marcaine mixed with 1% Lidocaine was injected in and around the incision. The left upper extremity was elevated, exsanguinated with an Esmarch bandage and the tourniquet inflated to 250 mmHg. A No. 15 scalpel blade was utilized to cut down through the skin. Subcutaneous hemostasis was achieved with the bipolar cautery. Additional dissection was done with Littler scissors until I was able to directly visualize the A1 mihai sheath in its entirety. Self-retaining retractors were placed into the wound. A free air elevator was used to free up the tissue on the radial side, the ulnar side distally and proximally under better visualization of A1 mihai sheath. Next, using a fresh No. 15 scalpel blade, I excised the central one-third of the A1 mihai sheath and passed it off the field as specimen, tendon sheath, ring finger. I then completed the release, both distally and proximally, and brought the FDS and FDP tendons out through the wound with a Ragnell retractor. There were no abnormal points of compression. I was able to move the ring finger without the tendons bunching up at all. The area was then copiously irrigated and washed out. I then checked one more time to make sure there were no abnormal points of compression. None were seen and therefore closure was begun. One stitch using 4-0 Vicryl was used in the deep dermal layer. Skin was reapproximated with 4-0 Nylon sutures in a horizontal mattress fashion. The area was then washed and dried, covered with Xeroform gauze, sterile 4x4s, fluffs between the fingers, Webril and Coban. The tourniquet was taken down after a total tourniquet time of 30 minutes. There were no complications during the case. The patient tolerated the procedure well and was brought to the Ambulatory recovery Room in stable condition. Livan [id number]
--- NOTE | 2017-10-31 12:02 | PATH ---
Surgical Pathology Report Patient Name: SIMEON ZAMARRIPA [facility]. Rec. #: [id number] /Age/Gender: 1940 (Age: 77) / M Account: [id number] Location: [facility] Taken: 10/30/2017 Received: 10/30/2017 Reported: 10/31/2017 Physicians: Han Delgado M.D. Specimen(s) Received TENOSYNOVIUM Clinical History Left carpal tunnel syndrome, left ring finger trigger Final Diagnosis SOFT TISSUE, LEFT HAND, CARPAL TUNNEL RELEASE: TENOSYNOVIUM. Electronically Signed Rudy Ortiz M.D. Gross Description Received in formalin labeled "left tenosynovium," is a 1.3 x 0.5 x 0.3 cm guadarrama-yellow soft tissue fragment. The specimen is submitted in toto in one cassette. /10/30/201710/30/2017
== END 2017-10-30 16:48 | disposition home or self-care (01) ==
LOC: JASU-SURG 09:04
PROVIDERS: ATTEND Orthopaedic Surgery
PROC: 0LB60ZZ Excision of Left Lower Arm and Wrist Tendon, Open Approach (ICD-10-PCS; 2017-10-30)
PROC: 0LN80ZZ Release Left Hand Tendon, Open Approach (ICD-10-PCS; 2017-10-30)
PROC: 01N50ZZ Release Median Nerve, Open Approach (ICD-10-PCS; principal; 2017-10-30 10:30)
DX: G56.02 Carpal tunnel syndrome, left upper limb (principal); M65.342 Trigger finger, left ring finger
CPT/HCPCS: 82962; 88304-TC; 94760

== ENCOUNTER 2018-12-26 05:15 | Day surgery (SDC) | payer OTHER ==
[2018-12-17 16:32] VITALS: BMI 35.2
--- NOTE | 2018-12-26 08:49 | HP ---
History & Physical Update - History History: No Change - Physical Physical: No Change - Assessment Assessment: No Change - Plan Plan: No Change
--- NOTE | 2018-12-26 08:51 | OP ---
Operative Note - Note: Operative Date: 12/26/18 Pre-Operative Diagnosis: phimosis, recurrent balanitis Operation: circumcision Findings: phimosis Post-Operative Diagnosis: Same as Pre-op Surgeon: Graham Izaguirre Anesthesiologist/[facility]: Hiwot Gonzalez Anesthesia: General, Local Specimens Removed: foreskin Estimated Blood Loss (mls): 0 Operative Report Dictated: Yes
[2018-12-26] MEDS ORDERED: BUPIVACAINE HCL/PF 0.5% (5MG/ML) 10 ML VIAL ONE (10:16)
[2018-12-26] MEDS ORDERED: LIDOCAINE HCL/PF 2% SDV 5ML VIAL ONE (10:34)
[2018-12-26] MEDS ORDERED: PROPOFOL 20 ML ONE ×2 (10:34)
[2018-12-26] MEDS ORDERED: BACITRACIN 15 GM TUBE TOPICAL OINTMENT ONE (11:09)
[2018-12-26] MEDS ORDERED: LIDOCAINE HCL 1%, 10 MG/ML (20ML VIAL) ONE (11:09)
[2018-12-26] MEDS ORDERED: ceFAZolin SODIUM 1 GM VIAL ONE (11:10)
[2018-12-26] MEDS ORDERED: ceFAZolin SODIUM 1 GM VIAL IVPB ONE (11:10)
[2018-12-26] MEDS ORDERED: BUPIVACAINE HCL/PF (5 MG/ML) 30 ML VIAL IJ ONE (11:15)
[2018-12-26] MEDS ORDERED: LIDOCAINE HCL 1%, 10 MG/ML (20ML VIAL) INF ONE (11:15)
[2018-12-26] MEDS ORDERED: BACITRACIN 15 GM TUBE TOPICAL OINTMENT TP ONE (11:42)
[2018-12-26] MEDS ORDERED: ONDANSETRON 4 MG/2 ML VIAL IVPUSH PRN (12:03)
[2018-12-26] MEDS ORDERED: oxyCODONE HCL 5 MG TABLET PO PRN (12:03)
[2018-12-26] MEDS ORDERED: LACTATED RINGERS SOLUTION 1,000 ML IV SCH (12:15)
--- NOTE | 2018-12-26 13:57 | OP ---
DATE OF OPERATION: 12/26/2018 PREOPERATIVE DIAGNOSIS: Phimosis and recurrent balanitis. POSTOPERATIVE DIAGNOSIS: Phimosis and recurrent balanitis. PROCEDURE: Circumcision. SURGEON: Graham Luke MD MANAGER FINE DINING: None. ANESTHESIA: General plus local. ANESTHESIOLOGIST: Hiwot Gonzalez MD SPECIMEN: Foreskin. CULTURES: None. DRAINS: None. ESTIMATED BLOOD LOSS: Negligible. COMPLICATIONS: None. DESCRIPTION OF PROCEDURE: Procedure was as follows. Patient was brought in the operating room, placed on the operating table in the supine position. After administration of general anesthesia via laryngeal mask, intravenous antibiotics were administered, sequential compression devices were placed. The foreskin was retracted. The genitals were prepped and draped in the usual sterile manner. Ten 10 of a 1:1 mixture of 0.5% Marcaine and 1% lidocaine was injected circumferentially at the base of the penis for penile block. The circumcoronal incision was outlined with the marking pen to the level of the ramos with the prep using the anatomic position. The circumcoronal incision was now made with a scalpel at the previously marked level. It was carried down to the underlying layer. The foreskin was retracted and the subcoronal preputial mucosal tissue was incised circumferentially leaving a 1.5-cm cuff circumferentially. The redundant foreskin was excised and sent to Pathology as specimen. Hemostasis was assured with electrocautery. The penile skin and the subcoronal preputial mucosal tissue was now approximated using interrupted 4-0 chromic sutures circumferentially. Hemostasis was assured. Dermabond was placed. Sterile compressive dressing of bacitracin, Xeroform gauze, 4 x 4, and Coban was applied. He tolerated the procedure well, was awoken from anesthesia in the operating room, transferred to the recovery room in stable condition. GRAHAM LUKE M.D. [id number]
[2018-12-26 14:24] VITALS: BP 141/74; PULSE 75; TEMP 97.9
--- NOTE | 2018-12-30 13:49 | PATH ---
Surgical Pathology Report Patient Name: SIMEON ZAMARRIPA Med. Rec. #: [id number] /Age/Gender: 1940 (Age: 78) / M Account: [id number] Location: [facility] Taken: 12/26/2018 Received: 12/26/2018 Reported: 12/30/2018 Physicians: Graham Izaguirre M.D. Specimen(s) Received FORESKIN Clinical History It Phimosis Final Diagnosis FORESKIN, RESECTION: SEGMENT OF FORESKIN WITH MODERATELY ACUTE AND CHRONIC INFLAMMATION. Electronically Signed Darrick Perkins M.D. Gross Description Received in formalin labeled "foreskin," is a 5.5 x 3.8 x 0.7 cm guadarrama, irregular, wrinkled portion of skin, consistent with foreskin. No discrete epidermal lesions are identified. A food service representative section is submitted in one cassette. /12/29/2018 saudi/12/29/2018
== END 2018-12-26 14:10 | disposition home or self-care (01) ==
LOC: JASU-SURG 05:15
PROVIDERS: ATTEND Urology
PROC: 0VTTXZZ Resection of Prepuce, External Approach (ICD-10-PCS; principal; 2018-12-26 10:00)
DX: N47.1 Phimosis (principal); N48.1 Balanitis; I10 Essential (primary) hypertension; E11.9 Type 2 diabetes mellitus without complications; Z21 Asymptomatic human immunodeficiency virus [HIV] infection status; Z79.84 Long term (current) use of oral hypoglycemic drugs
CPT/HCPCS: 82962; 88304-TC; 94760

== ENCOUNTER 2019-11-08 20:49 | Emergency (ER) | payer OTHER ==
[2019-11-08 21:14] VITALS: BMI 32.9
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
[2019-11-08] MEDS ORDERED: SODIUM CHLORIDE 0.9% 500 ML INFUS.BAG IV ONE (21:44)
[2019-11-08 22:18] LABS: EOS % 0.7 % (0-4.5); HEMATOCRIT 39.8 % (35.4-49); HEMOGLOBIN 12.5 GM/dl (11.7-16.9); LYMPH % 9.1 % (8-40); MCH 25.2 pg (25.7-33.7); MCHC 31.4 g/dl (32.0-35.9); MEAN CELL VOLUME 80.4 fl (80-96); MEAN PLT VOLUME 8.9 fl (7.5-11.1); MONO % 6.9 % (3.8-10.2); NEUT % 83.3 % (42.8-82.8); PLATELET COUNT 223 K/MM3 (134-434); RBC 4.95 M/mm3 (4.00-5.60); RDW 16.9 % (11.9-15.9); WHITE BLOOD COUNT 13.3 K/mm3 (4.0-10.8)
[2019-11-08 22:32] LABS: ALBUMIN 3.9 g/dl (3.4-5.0); BILIRUBIN,TOTAL 1.6 mg/dl (0.2-1); CALCIUM 8.1 mg/dl (8.5-10); CREATININE 1.3 mg/dl (0.55-1.3); POTASSIUM 4.2 mmol/L (3.5-5.1); TOT PROT 8.1 g/dl (6.4-8.2)
[2019-11-09 00:36] VITALS: BP 144/89; PULSE 86; TEMP 98.4
[2019-11-09] MEDS ORDERED: NITROFURANTOIN MACROCRYSTAL 50 MG CAPSULE (FP) ONE (00:39)
[2019-11-09] MEDS ORDERED: NITROFURANTOIN MACROCRYSTAL 50 MG CAPSULE (FP) PO SCH (00:45)
== END 2019-11-09 00:51 | disposition home or self-care (01) ==
LOC: FER 20:49
DX: N30.00 Acute cystitis without hematuria (principal); Z88.2 Allergy status to sulfonamides; Z87.891 Personal history of nicotine dependence; I10 Essential (primary) hypertension; E11.9 Type 2 diabetes mellitus without complications
CPT/HCPCS: 36415; 71046-TC-FY; 80053; 81003; 81015; 83605; 84484; 85025; 87040; 87086; 87186; 87804; 99284-25